=== PATIENT | female | born 1980 | race American Indian/Alaskan Native ===

== ENCOUNTER 2017-05-13 05:53 | Day surgery (SDC) | payer MEDICARE ==
[2017-05-13] MEDS ORDERED: ANCEF/STERILE WATER 2 GM/20 ML 2 GM/20 ML SYRINGE IV NR (06:00)
[2017-05-13] MEDS ORDERED: NACL 0.9% 1000 ML 1,000 ML IV SCH (06:00)
[2017-05-13] MEDS ORDERED: NACL BACTERIOSTATIC INFILTRATI ONE (06:44)
[2017-05-13] MEDS ORDERED: SUBLIMAZE ONE (07:19)
[2017-05-13] MEDS ORDERED: DIPRIVAN 10 MG/ML IV ONE (07:19)
[2017-05-13] MEDS ORDERED: NACL 0.9% 100 ML ONE (07:23)
[2017-05-13] MEDS ORDERED: ROBINUL ONE (07:23)
[2017-05-13] MEDS ORDERED: XYLOCAINE MPF 2% ONE (07:23)
[2017-05-13] MEDS ORDERED: NEO SYNEPHRINE ONE (07:23)
[2017-05-13] MEDS ORDERED: HEPARIN 10,000 UNITS/10 ML ONE (07:36)
[2017-05-13] MEDS ORDERED: PROTAMINE SULFATE ONE (07:36)
[2017-05-13] MEDS ORDERED: MARCAINE 0.25% INFILTRATI ONE ×3 (07:36→09:46)
[2017-05-13] MEDS ORDERED: NACL 0.9% 500 ML 500 ML ONE (07:37)
[2017-05-13] MEDS ORDERED: GELFOAM TP ONE ×2 (07:37→11:05)
[2017-05-13] MEDS ORDERED: THROMBIN (BOVINE) TP ONE (07:37)
[2017-05-13] MEDS ORDERED: PERCOCET 5/325 PO PRN (07:38)
[2017-05-13] MEDS ORDERED: ZOFRAN IV PRN (07:38)
[2017-05-13] MEDS ORDERED: MORPHINE IV PRN (07:38)
--- NOTE | 2017-05-13 07:40 | Anesthesia Consultation ---
Anesthesia Consult and Med Hx Date of service: 05/13/17 - Airway Anesthetic Teeth Evaluation: Good, Partials (upper) ROM Head & Neck: Adequate Mental/Hyoid Distance: Adequate Mallampati Class: Class II Intubation Access Assessment: Probably Good - Pulmonary Exam CTA: Yes - Cardiac Exam Cardiac Exam: RRR - Pre-Operative Health Status ASA Pre-Surgery Classification: ASA3 Proposed Anesthetic Plan: General - Pulmonary Hx Smoking: No Hx Asthma: No - Cardiovascular System Hx Hypertension: Yes (x 1 yr) - Central Nervous System Hx Neuromuscular Disorder: No (has leg and hand spasms) Hx Seizures: No Hx Psychiatric Problems: Yes - Endocrine Hx Renal Disease: Yes (not yet on dialysis) Hx Hyperthyroidism: Yes (? hyperparathyroidism?) - Hematic Hx Anemia: Yes - Other Systems Hx Cancer: No
--- NOTE | 2017-05-13 07:41 | Anesthesia Day of Surgery ---
Anesthesia Day of Surgery - Day of Surgery Patient Examined: Yes Patient is NPO: Yes
[2017-05-13 07:42] LABS: Hematocrit 33.8 % (30.3-42.9); Hemoglobin 11.4 gm/dl (10.1-14.3)
[2017-05-13] MEDS ORDERED: PEPCID IV ONE (07:47)
[2017-05-13] MEDS ORDERED: VERSED IV NR (08:00)
[2017-05-13] MEDS ORDERED: PEPCID IV NR (08:00)
[2017-05-13] MEDS ORDERED: DILAUDID ONE (09:02)
[2017-05-13] MEDS ORDERED: DECADRON ONE (09:17)
[2017-05-13] MEDS ORDERED: ZOFRAN ONE (09:17)
[2017-05-13] MEDS ORDERED: BREVIBLOC IV ONE ×3 (09:24→11:04)
[2017-05-13] MEDS ORDERED: TRIDIL DRIP 50MG/250ML 0 MG/0 ML BOTTLE ONE (09:36)
[2017-05-13] MEDS ORDERED: NITROGLYCERIN SYRINGE 3 ML ONE (09:36)
[2017-05-13] MEDS ORDERED: NACL 0.9% IR ONE (09:46)
[2017-05-13] MEDS ORDERED: NITROGLYCERIN SYRINGE IR ONE (09:46)
[2017-05-13] MEDS ORDERED: NITROGLYCERIN SYRINGE UD ONE (09:46)
[2017-05-13] MEDS ORDERED: HEPARIN 10,000 UNITS/10 ML 2,000 UNIT in NACL 0.9% 500 ML 500 ML IR ONE (09:48)
[2017-05-13 11:05] LABS: Hematocrit 29.9 % (30.3-42.9); Hemoglobin 10.1 gm/dl (10.1-14.3)
[2017-05-13] MEDS ORDERED: THROMBIN SPRAYKIT (BOVINE) TP ONE (11:05)
[2017-05-13] MEDS ORDERED: NACL 0.9% 1000 ML 1,000 ML ONE (11:06)
--- NOTE | 2017-05-13 11:06 | Short Stay Summary ---
Short Stay Documentation Date of service: 05/13/17 - History H&P: obtained from office - Allergies and Medications Current Medications: Allergies No Known Allergies Allergy (Verified 05/13/17 06:47) Home Medications Medication Instructions Recorded Confirmed Last Taken Type HYDROcodone/APAP 10-325 [[place] 1 each PO Q6HR PRN #30 tablet 04/10/14 05/13/17 04/13/17 Rx 10-325 mg TAB] Calcitriol [Rocaltrol] 0.5 mcg PO PRN PRN 05/07/17 05/13/17 05/06/17 History Citalopram [celeXA] 20 mg PO QDAY 05/07/17 05/13/17 05/12/17 History Lisinopril [Zestril] 40 mg PO DAILY 05/07/17 05/07/17 05/12/17 22:00 History NIFEdipine [Procardia] 10 mg PO DAILY 05/07/17 05/07/17 05/12/17 22:00 History Active Medications Cefazolin Sodium (Ancef/Sterile Water 2 Gm/20 Ml) 2 gm in 20 mls @ 80 mls/hr IV PREOP NR PRN Reason: Protocol Stop: 05/13/17 23:59 Sodium Chloride (Nacl 0.9% 1000 Ml) 1,000 mls @ 42 mls/hr IV DIRECT SARAH Last Admin: 05/13/17 07:09 Dose: 42 mls/hr Midazolam HCl (Versed) 2 mg IV PREOP NR Stop: 05/13/17 23:59 Last Admin: 05/13/17 07:47 Dose: 2 mg Morphine Sulfate (Morphine) 2 mg IV Q10MIN PRN PRN Reason: Pain, Moderate (4-6) Stop: 05/13/17 12:00 Ondansetron HCl (Zofran) 4 mg IV ONCE PRN PRN Reason: Nausea And Vomiting Stop: 05/13/17 12:00 - Brief post op/procedure progress note Date of procedure: 05/13/17 Pre-op diagnosis: ESRD Post-op diagnosis: same Procedure: RUE cephalic vein to brachial artery AVF at the elbow Anesthesia: MAC, local Findings: good thrill but some spasm noted at end Surgeon: RACHEL JENKINS Clinical Quality Assurance Specialist: DEVANTE SNYDER Estimated blood loss: minimal Pathology: none Condition: stable - Hospital course Hospital course: benign - Disposition Condition at discharge: Good Disposition: DC-01 TO HOME OR SELFCARE - Discharge Diagnoses (1) Chronic kidney disease Status: Chronic Qualifiers: Chronic kidney disease stage: stage 5, not on chronic dialysis Qualified Code(s): N18.5 - Chronic kidney disease, stage 5 Short Stay Discharge Plan Activity: advance as tolerated Diet: advance as tolerated Wound: per your surgeon's advice Follow up with: RACHEL JENKINS MD [Staff Physician] - 14 Days Prescriptions: HYDROcodone/APAP 5-325 [[place] 5/325] 1 each PO Q6HR PRN #40 tablet PRN Reason: Pain
--- NOTE | 2017-05-13 11:11 | Operative Report ---
Operative Report Operative Report: Date of procedure: 05/13/2017 Pre-operative diagnosis: End-stage renal failure Post-operative diagnosis: Same Procedure name(s): [Cephalic] vein to brachial artery fistula at the level of the elbow in the right upper extremity Surgeon: Natan Cherry MD Drying Can Worker: [JAYLAN Burns] Anesthesia: Local MAC EBL: Less than 50 mL Operative indication: Patient is a 36 year old woman with a history of end- stage renal failure. The patient presents for establishment of long-term hemodialysis access. Findings: Excellent thrill in the arteriovenous fistula at the end of the procedure. Easily palpable radial pulse distal to the anastomosis. Procedure: The patient was placed on the table in the supine position. The right arm was prepped with ChloraPrep solution and draped in the usual sterile fashion. The ultrasound was used to identify the cephalic vein after a tourniquet had been placed in the upper arm using a rubber glove. The vein appeared to be of adequate caliber and no thrombus was noted. I had actually uses the ultrasound on the patient in the holding area. The left upper extremity veins were small and unusable. The right cephalic vein appeared to be of reasonable caliber. The patient was given general anesthesia. Under local anesthesia, an incision was made just below the elbow. Dissection was carried out to identify the common vein. Dissection was also carried out to identify the brachial artery. The brachial artery had into the radial artery and brachial artery just above the elbow. The brachial artery was slightly smaller than expected. The vein was dissected from the surrounding tissue to provide enough length to reach the artery. A branch point of the vein was spatulated for the anastomosis. Nitroglycerin was instilled into the vein to dwell while the anastomosis was created. An arteriotomy was made in the artery. Nitroglycerin was instilled into the proximal portion of the artery as well. An end-to-side anastomosis was created using running 7-0 Prolene. A #2 Nicci catheter was used to make sure all vessels were patent. The anastomosis was completed and flow started into the fistula. There was a strong thrill at the level of the elbow. Over a period of observation, I was concerned that the fistula thrill was not as good as I expected. I passed a Nicci catheter through the side branch of the fistula to dilate the arterial anastomosis. This seemed to have limited effect. I ultimately reoccluded the brachial artery and opened the anterior surface of the anastomosis and redid that to make sure that there was no anterior obstruction. Passage of the Nicci revealed that all 3 vessels were widely patent (proximal brachial artery, distal brachial artery, and proximal vein). Flow was started back into the fistula with development of the thrill in the elbow area again with easily audible low resistance Doppler flow only up through the cephalic vein. It appeared that the patient continue to have intermittent spasm of her vessels which is probably related to her young age and the relatively small vessels that she had. At this point I felt it was productive to continue to try and overcome spasm at multiple locations. I should note that I did give the patient 3000 units of intravenous heparin during the reopening procedure. Hemostasis was obtained. The wound was infiltrated with half percent Marcaine and epinephrine. Closure was done with 3-0 Vicryl and 4-0 subcuticular PDS. Dermabond was placed. The patient tolerated the procedure well. There was an easily palpable right radial pulse at the end of the procedure. There was a good thrill in the fistula at the end of the procedure. Sponge, needle, and instrument counts were reported as correct.
[2017-05-13] MEDS ORDERED: APRESOLINE IV ONE (12:27)
--- NOTE | 2017-05-13 13:28 | Post Anesthesia Evaluation ---
- Post Anesthesia Evaluation Patient Participated: Yes Airway Patent: Yes Stable Respiratory Function: Yes Nausea/Vomiting: No Temp > 96.8F: Yes Pain Manageable: Yes Adequeate Hydration: Yes Anesthesia Complications: No Block Receding Appropriately: Not Applicable Patient on Ventilator: No
[2017-05-13 16:50] VITALS: BP 141/91
== END 2017-05-13 14:24 | disposition home or self-care (01) ==
LOC: OR 05:53
PROVIDERS: ATTEND Surgery Vascular Surgery
DX: I12.0 Hypertensive chronic kidney disease with stage 5 chronic kidney disease or end stage renal disease (principal); N18.6 End stage renal disease; B20 Human immunodeficiency virus [HIV] disease; E05.90 Thyrotoxicosis, unspecified without thyrotoxic crisis or storm; Z98.890 Other specified postprocedural states
CPT/HCPCS: 36415; 36821; 81025; 82310; 82803; 84132; 85014; 85018; A4649; C1757; J0360; J0690; J1100; J1170; J1644; J2250; J2370; J2405; J2704; J3010; J7030; J7040; J2720

== ENCOUNTER 2019-01-18 10:43 | Inpatient (IN) | payer MEDICARE ==
[2019-01-18] MEDS ORDERED: CATAPRES PO ONE (11:46)
--- NOTE | 2019-01-18 11:54 | Emergency Department Report ---
HPI - General Chief Complaint: High BP Time Seen by Provider: 01/18/19 11:29 - HPI HPI: Room 6 The patient is a 38-year-old female presenting with the chief complaint of needing dialysis. The patient has history of end-stage renal disease and normally receives dialysis every Thursday. The patient states received dialysis 3 days ago (Thursday) as scheduled. The patient states this morning she was unable to obtain a ride to dialysis so she called EMS to come to the emergency department. Patient states she developed shortness of breath this morning ED Past Medical Hx - Past Medical History Previous Medical History?: Yes Hx Hypertension: Yes Hx Renal Disease: Yes (not yet on dialysis) Hx Arthritis: Yes (hands) Hx Psychiatric Treatment: Yes (Depression) Hx HIV: Yes (last CD4 count 117 Summer 2018) Additional medical history: Sciatica. Shingles - Surgical History Past Surgical History?: Yes Additional Surgical History: AVG placement. permacath placement - Family History Family history: no significant - Social History Smoking Status: Never Smoker Substance Use Type: None - Medications Home Medications: Home Medications Medication Instructions Recorded Confirmed Last Taken Type HYDROcodone/APAP 10-325 [[place] 1 each PO Q6HR PRN #30 tablet 04/10/14 05/13/17 04/13/17 Rx 10-325 mg TAB] Calcitriol [Rocaltrol] 0.5 mcg PO PRN PRN 05/07/17 05/13/17 05/06/17 History Citalopram [Celexa] 20 mg PO QDAY 05/07/17 05/13/17 05/12/17 History Lisinopril [Zestril] 40 mg PO DAILY 05/07/17 05/07/17 05/12/17 22:00 History NIFEdipine [Procardia] 10 mg PO DAILY 05/07/17 05/07/17 05/12/17 22:00 History HYDROcodone/APAP 5-325 [[place] 1 each PO Q6HR PRN #40 tablet 05/13/17 Unknown Rx 5/325] ED Review of Systems ROS: Stated complaint: DIALYSIS Other details as noted in HPI Constitutional: no symptoms reported Eyes: denies: eye pain ENT: denies: throat pain Respiratory: shortness of breath Cardiovascular: denies: chest pain Endocrine: no symptoms reported Gastrointestinal: denies: abdominal pain Genitourinary: denies: abnormal menses Musculoskeletal: denies: back pain Neurological: denies: headache Physical Exam - Physical Exam Vital Signs: Vital Signs 01/18/19 10:55 Temperature 97.8 F Pulse Rate 95 H Respiratory 18 Rate Blood Pressure 177/116 O2 Sat by Pulse 100 Oximetry Physical Exam: GENERAL: The patient is well-developed well-nourished female lying on stretcher not appearing to be in acute distress. [] HEENT: Normocephalic. Atraumatic. Extraocular motions are intact. Patient has moist mucous membranes. NECK: Supple. Trachea midline CHEST/LUNGS: Clear to auscultation. There is no respiratory distress noted. HEART/CARDIOVASCULAR: Regular. There is no tachycardia. There is no gallop rub or murmur. ABDOMEN: Abdomen is soft, nontender. Patient has normal bowel sounds. There is no abdominal distention. SKIN: There is no rash. There is trace to 1+ bilateral lower external ear. Edema. There is no diaphoresis. NEURO: The patient is awake, alert, and oriented. The patient is cooperative. The patient has normal speech MUSCULOSKELETAL: There is no evidence of acute injury. ED Course Vital Signs 01/18/19 10:55 Temperature 97.8 F Pulse Rate 95 H Respiratory 18 Rate Blood Pressure 177/116 O2 Sat by Pulse 100 Oximetry - Consultations Consultation #1: 01/18/19 13:44 Nephrology paged 01/18/19 14:[address] Dominguez- will arrange for hemodialysis ED Medical Decision Making - Lab Data Result diagrams: 01/18/19 12:48 01/18/19 12:48 Laboratory Tests 01/18/19 01/18/19 01/18/19 12:48 12:48 12:48 WBC 2.7 L RBC 3.51 L Hgb 9.8 L Hct 30.8 MCV 88 MCH 28 MCHC 32 RDW 20.6 H Plt Count 188 Lymph % (Auto) 39.5 H [place] % (Auto) 8.2 H Eos % (Auto) 5.2 H Baso % (Auto) 1.6 Lymph # 1.1 L [place] # 0.2 Eos # 0.1 Baso # 0.0 Seg Neutrophils % 45.5 Seg Neutrophils # 1.2 L PT 13.7 INR 1.08 APTT 29.7 Sodium 135 L Potassium 4.5 Chloride 96.4 L Carbon Dioxide 26 Anion Gap 17 BUN 39 H Creatinine 9.8 H Estimated GFR 5 BUN/Creatinine Ratio 4 Glucose 131 H Calcium 8.3 L - Radiology Data Radiology results: report reviewed (chest x-ray), image reviewed (chest x-ray) interpreted by me: Chest [id number] [facility] [address] [place] [address] XRay Report Signed Patient: ESAU HUFF MR#: [id number] : 1980 Acct:[id number] Age/Sex: 38 / F ADM Date: 01/18/19 Loc: ED Attending Dr: Ordering Physician: GROVER MUNGUIA MD Date of Service: 01/18/19 Procedure(s): XR chest 1V ap Accession Number(s): [id number] cc: GROVER MUNGUIA MD Fluoro Time In Minutes: CHEST 1 VIEW 11:53 AM INDICATION / CLINICAL INFORMATION: Shortness of breath. Scheduled for dialysis. COMPARISON: None available. FINDINGS: SUPPORT DEVICES: There is a right jugular CVL with the tip overlying the inferior right atrium. HEART / MEDIASTINUM: There is mild generalized enlargement of the cardiopericardial silhouette. There is mild prominence of the central pulmonary vessels. LUNGS / PLEURA: Interstitial lung markings are mildly increased in the lower lung zones, right greater than left. No pneumothorax. ADDITIONAL FINDINGS: There is mild gaseous distention of the stomach. IMPRESSION: 1. Mild congestive heart failure/fluid overload. 2. Mild gaseous distention of the stomach. Signer Name: Rubén Reyes MD Signed: 01/18/2019 12:32 PM Workstation Name: [id number] Transcribed By: RT Dictated By: Rubén Reyes MD Electronically Authenticated By: Rubén Reyes MD Signed Date/Time: 01/18/19 1232 DD/ 1231 TD/TT: - Differential Diagnosis end-stage renal disease, pulmonary edema, hypertensive urgency Critical care attestation.: If time is entered above; I have spent that time in minutes in the direct care of this critically ill patient, excluding procedure time. ED Disposition Clinical Impression: End stage renal disease, Shortness of breath Disposition: OP ADMIT IP TO THIS HOSP Is pt being admited?: Yes Does the pt Need Aspirin: No Condition: Fair Referrals: PRIMARY CARE,MD [Primary Care Provider] - 3-5 Days Time of Disposition: 14:19 (hospitalist paged (Dr Fontanez))
--- NOTE | 2019-01-18 12:37 | XRay Report ---
CHEST 1 VIEW 11:53 AM INDICATION / CLINICAL INFORMATION: Shortness of breath. Scheduled for dialysis. COMPARISON: None available. FINDINGS: SUPPORT DEVICES: There is a right jugular CVL with the tip overlying the inferior right atrium. HEART / MEDIASTINUM: There is mild generalized enlargement of the cardiopericardial silhouette. There is mild prominence of the central pulmonary vessels. LUNGS / PLEURA: Interstitial lung markings are mildly increased in the lower lung zones, right greate r than left. No pneumothorax. ADDITIONAL FINDINGS: There is mild gaseous distention of the stomach. IMPRESSION: 1. Mild congestive heart failure/fluid overload. 2. Mild gaseous distention of the stomach. Signer Name: Rubén Reyes MD Signed: 01/18/2019 12:32 PM Workstation Name: [id number]
[2019-01-18 13:23] LABS: Basophils % (Auto) 1.6 % (0.0-1.8); Eosinophils # (Auto) 0.1 K/mm3 (0.0-0.4); Eosinophils % (Auto) 5.2 % (0.0-4.3); Hematocrit 30.8 % (30.3-42.9); Hemoglobin 9.8 gm/dl (10.1-14.3); Lymphocytes # (Auto) 1.1 K/mm3 (1.2-5.4); Lymphocytes % (Auto) 39.5 % (13.4-35.0); Mean Corpuscular HGB Conc 32 % (30-34); Mean Corpuscular Volume 88 fl (79-97); Monocytes # (Auto) 0.2 K/mm3 (0.0-0.8); Monocytes % (Auto) 8.2 % (0.0-7.3); Platelet Count 188 K/mm3 (140-440); Red Blood Count 3.51 M/mm3 (3.65-5.03)
[2019-01-18 13:33] LABS: INR 1.08 (0.87-1.13)
[2019-01-18 13:34] LABS: Partial Thromboplastin Time 29.7 Sec. (24.2-36.6)
[2019-01-18 13:35] LABS: Red Cell Distribution Width 20.6 % (13.2-15.2)
[2019-01-18 13:43] LABS: Calcium 8.3 mg/dL (8.4-10.2)
[2019-01-18] MEDS ORDERED: NACL 0.9% 100 ML IV PRN (14:30)
[2019-01-18] MEDS ORDERED: ZOFRAN IV PRN (15:41)
[2019-01-18] MEDS ORDERED: PROVENTIL IH PRN (15:41)
[2019-01-18] MEDS ORDERED: SODIUM CHLORIDE FLUSH SYRINGE 10 ML IV PRN (15:41)
[2019-01-18] MEDS ORDERED: TYLENOL PO PRN (15:41)
--- NOTE | 2019-01-18 15:41 | History and Physical Report ---
History of Present Illness History of present illness: om 6 The patient is a 38-year-old female presenting with the chief complaint of needing dialysis. The patient has history of end-stage renal disease and normally receives dialysis every Thursday. The patient states received dialysis 3 days ago (Thursday) as scheduled. The patient states this morning she was unable to obtain a ride to dialysis so she called EMS to come to the emergency department. Patient states she developed shortness of breath this morning ED Past Medical Hx - Past Medical History Previous Medical History?: Yes Hx Hypertension: Yes Hx Renal Disease: Yes (not yet on dialysis) Hx Arthritis: Yes (hands) Hx Psychiatric Treatment: Yes (Depression) Hx HIV: Yes (last CD4 count 117 Summer 2018) Additional medical history: Sciatica. Shingles - Surgical History Past Surgical History?: Yes Additional Surgical History: AVG placement. permacath placement - Family History Family history: no significant - Social History Smoking Status: Never Smoker Substance Use Type: None - Medications Medications and Allergies Allergies Allergy/AdvReac Type Severity Reaction Status Date / Time No Known Allergies Allergy Verified 05/13/17 06:47 Home Medications Medication Instructions Recorded Confirmed Last Taken Type HYDROcodone/APAP 10-325 [[place] 1 each PO Q6HR PRN #30 tablet 04/10/14 05/13/17 04/13/17 Rx 10-325 mg TAB] Calcitriol [Rocaltrol] 0.5 mcg PO PRN PRN 05/07/17 05/13/17 05/06/17 History Citalopram [Celexa] 20 mg PO QDAY 05/07/17 05/13/17 05/12/17 History Lisinopril [Zestril] 40 mg PO DAILY 05/07/17 05/07/17 05/12/17 22:00 History NIFEdipine [Procardia] 10 mg PO DAILY 05/07/17 05/07/17 05/12/17 22:00 History HYDROcodone/APAP 5-325 [[place] 1 each PO Q6HR PRN #40 tablet 05/13/17 Unknown Rx 5/325] Active Meds: Active Medications Sodium Chloride (Nacl 0.9%) 100 mls @ 999 mls/hr IV BILL PRN PRN Reason: Hypotension Exam - Constitutional Vitals: Temp Pulse Resp BP Pulse Ox 98.3 F 83 20 159/109 99 09/03/19 12:05 01/18/19 12:05 01/18/19 12:28 01/18/19 12:05 01/18/19 12:28 Results - Labs CBC & Chem 7: 01/18/19 12:48 01/18/19 12:48 Labs: Abnormal lab results 01/18/19 01/18/19 Range/Units 12:48 12:48 WBC 2.7 L (4.5-11.0) K/mm3 RBC 3.51 L (3.65-5.03) M/mm3 Hgb 9.8 L (10.1-14.3) gm/dl RDW 20.6 H (13.2-15.2) % Lymph % (Auto) 39.5 H (13.4-35.0) % [place] % (Auto) 8.2 H (0.0-7.3) % Eos % (Auto) 5.2 H (0.0-4.3) % Lymph # 1.1 L (1.2-5.4) K/mm3 Seg Neutrophils # 1.2 L (1.8-7.7) K/mm3 Sodium 135 L (137-145) mmol/L Chloride 96.4 L (98-107) mmol/L BUN 39 H (7-17) mg/dL Creatinine 9.8 H (0.7-1.2) mg/dL Glucose 131 H (65-100) mg/dL Calcium 8.3 L (8.4-10.2) mg/dL
[2019-01-18] MEDS ORDERED: NORCO 10/325 PO PRN (15:43)
[2019-01-18] MEDS ORDERED: ROCALTROL PO PRN (15:43)
[2019-01-18 16:20] VITALS: BP 169/115
[2019-01-18] MEDS ORDERED: SODIUM CHLORIDE FLUSH SYRINGE 10 ML IV SCH (22:00)
[2019-01-19] MEDS ORDERED: celeXA PO SCH (10:00)
[2019-01-19] MEDS ORDERED: PROCARDIA*For Tocolysis only PO SCH (10:00)
[2019-01-19] MEDS ORDERED: ZESTRIL PO SCH (10:00)
== END 2019-01-18 16:00 | disposition left against medical advice (07) | DRG 682 ==
LOC: ED 10:43 → 3A 15:42
PROVIDERS: ADMIT Internal Medicine; ATTEND Internal Medicine
DX: I12.0 Hypertensive chronic kidney disease with stage 5 chronic kidney disease or end stage renal disease (principal); N18.6 End stage renal disease; R06.02 Shortness of breath; Z99.2 Dependence on renal dialysis; M19.042 Primary osteoarthritis, left hand; M19.041 Primary osteoarthritis, right hand; F32.9 Major depressive disorder, single episode, unspecified; Z53.21 Procedure and treatment not carried out due to patient leaving prior to being seen by health care provider; Z21 Asymptomatic human immunodeficiency virus [HIV] infection status
CPT/HCPCS: 36415; 71045; 80048; 85025; 85610; 85730; G0378

== ENCOUNTER 2019-12-15 09:46 | Observation (INO) | payer MEDICARE ==
--- NOTE | 2019-12-15 11:40 | Emergency Department Report ---
HPI - General Chief Complaint: Recheck/Abnormal Lab/Rx Time Seen by Provider: 12/15/19 11:15 - HPI HPI: This is a 39-year-old old -[place] female who presents to the emergency department with complaint of some shortness of breath after missing her dialysis session yesterday. She went to [facility] and says that she had some blood work done and the cafe manager was called and they ended up discharging her to follow-up with the dialysis clinic. However the patient says that she attempted to go to the dialysis clinic but they would not dialyze her secondary to her elevated blood pressure. She spoke to her cafe manager, Dr. Dominguez, who told her to come to [facility] for dialysis. She also has a past medical history of hypertension, HIV, sciatica. ED Past Medical Hx - Past Medical History Hx Hypertension: Yes Hx Renal Disease: Yes Hx Arthritis: Yes (hands) Hx Seizures: No Hx Psychiatric Treatment: Yes (Depression) Hx Asthma: No Hx HIV: Yes (last CD4 count 117 Summer 2018) Additional medical history: Sciatica. Shingles - Surgical History Additional Surgical History: AVG placement. permacath placement - Social History Smoking Status: Never Smoker Substance Use Type: None - Medications Home Medications: Home Medications Medication Instructions Recorded Confirmed Last Taken Type HYDROcodone/APAP 10-325 [[place] 1 each PO Q6HR PRN #30 tablet 04/10/14 05/13/17 04/13/17 Rx 10-325 mg TAB] Citalopram [Celexa] 20 mg PO QDAY 05/07/17 05/13/17 05/12/17 History Lisinopril [Zestril] 40 mg PO DAILY 05/07/17 05/07/17 05/12/17 22:00 History NIFEdipine [Procardia] 10 mg PO DAILY 05/07/17 05/07/17 05/12/17 22:00 History calcitrioL [Rocaltrol] 0.5 mcg PO PRN PRN 05/07/17 05/13/17 05/06/17 History HYDROcodone/APAP 5-325 [[place] 1 each PO Q6HR PRN #40 tablet 05/13/17 Unknown Rx 5/325] ED Review of Systems ROS: Stated complaint: DIALYSIS Other details as noted in HPI Comment: All other systems reviewed and negative Constitutional: denies: chills, fever Eyes: denies: eye pain, vision change ENT: denies: ear pain, throat pain Respiratory: shortness of breath. denies: cough Cardiovascular: edema. denies: chest pain Gastrointestinal: denies: abdominal pain, vomiting Genitourinary: denies: dysuria, discharge Musculoskeletal: denies: back pain, arthralgia Skin: denies: rash, lesions Neurological: denies: headache, weakness Physical Exam - Physical Exam Physical Exam: GENERAL: The patient is well-developed well-nourished. HENT: Normocephalic. Atraumatic. Patient has moist mucous membranes. EYES: Extraocular motions are intact. NECK: Supple. Trachea is midline. CHEST/LUNGS: Slightly coarse breath sounds. No tachypnea or accessory muscle use. There is no respiratory distress noted. HEART/CARDIOVASCULAR: Regular. There is no tachycardia. ABDOMEN: Abdomen is soft, nontender. Patient has normal bowel sounds. SKIN: Skin is warm and dry. NEURO: The patient is awake, alert, and oriented. The patient is cooperative. Normal speech. MUSCULOSKELETAL: There is no tenderness or deformity. There is no evidence of acute injury. ED Course - Consultations Consultation #1: 12/15/19 18:00 I spoke with the patient's nephrology service, Dr. Rooney, and the patient will receive dialysis today. ED Medical Decision Making - Lab Data Result diagrams: 12/15/19 11:27 12/15/19 11:27 - Radiology Data Radiology results: image reviewed interpreted by me: Chest x-ray does not show any acute process. There are no pleural effusions, obvious pneumonia and there is no pneumothorax. - Medical Decision Making This patient presents needing dialysis with some shortness of breath. Chest x- ray did not show any acute process. She had a potassium of 5.9 and renal insufficiency consistent with her end-stage renal disease needing dialysis. Nephrology was contacted and consulted. Patient accepted for admission by the hospitalist, Dr. Iqbal. Critical Care Time: No Critical care attestation.: If time is entered above; I have spent that time in minutes in the direct care of this critically ill patient, excluding procedure time. ED Disposition Clinical Impression: ESRD needing dialysis, Missed dialysis, Hyperkalemia HTN (hypertension) Qualifiers: Hypertension type: essential hypertension Qualified Code(s): I10 - Essential (primary) hypertension Disposition: -09 OP ADMIT IP TO THIS HOSP Is pt being admited?: Yes Condition: Fair Time of Disposition: 14:00
[2019-12-15 11:54] LABS: Hematocrit 33.6 % (30.3-42.9); Hemoglobin 10.8 gm/dl (10.1-14.3); Mean Corpuscular HGB Conc 32 % (30-34); Mean Corpuscular Volume 90 fl (79-97); Platelet Count 203 K/mm3 (140-440); Red Blood Count 3.75 M/mm3 (3.65-5.03); Red Cell Distribution Width 18.6 % (13.2-15.2)
--- NOTE | 2019-12-15 12:00 | XRay Report ---
CHEST 1 VIEW 12/15/2019 10:49 AM INDICATION / CLINICAL INFORMATION: SOB. COMPARISON: 01/18/2019 FINDINGS: SUPPORT DEVICES: None. HEART / MEDIASTINUM: Cardiac silhouette is mildly enlarged, unchanged. LUNGS / PLEURA: No significant pulmonary or pleural abnormality. No pneumothorax. ADDITIONAL FINDINGS: No significant additional findings. IMPRESSION: 1. No acute findings. Signer Name: Deo Araya MD Signed: 12/15/2019 11:55 AM Workstation Name: [id number]
[2019-12-15 12:09] LABS: Calcium 10.3 mg/dL (8.4-10.2)
[2019-12-15] MEDS ORDERED: EPOETIN ALFA 10,000 UNIT/1 ML INJ IV PRN (14:11)
[2019-12-15] MEDS ORDERED: SODIUM CHLORIDE 0.9% 100 ML IV PRN (14:11)
--- NOTE | 2019-12-15 15:05 | History and Physical Report ---
History of Present Illness Date of examination: 12/15/19 Date of admission: 12/15/19 14:00 Chief complaint: SOB after missed HD session 12/13 History of present illness: This is a 39-year-old old -[place] female with ESRD on HD (MWF) for 1 year, HIV, HTN, depression, anxiety, asthma, sciatica and history of shingles infection who presented to the emergency department on 12/14 with complaint of some SOB after missing her HD session yesterday because the air-conditioner is broken at the facility. She states she went to [facility] where they refused an HD treatment because her varnishing unit tool setter told them not to administer it. Per ED documentation she stated that she attempted to go to the dialysis clinic but they would not dialyze her secondary to her elevated blood pressure and she spoke to her varnishing unit tool setter, Dr. Dominguez, who told her to come to [facility] for dialysis. She denies chest pain, recent weight loss, hemoptysis, fatigue, chronic headaches, recent travel, recent exposure to sick individuals, or recent known COVID-19 exposure. She does have shortness of breath on exertion for 1 day related to a missed dialysis session. She also states she has been coughing up clear phlegm for 3 months and recently visited an ENT a week ago who told her she has a blocked salivary duct and a left ear infection. She also states that she had watery diarrhea 4-6 times this morning after eating spinach with peaches. Work-up in the emergency department included a chest x-ray which showed no acute process and lab work which revealed a potassium of 5.9, uremia with a BUN 85, creatinine of 11.9. Dr. Dominguez was consulted in the emergency department. She is being admitted for observation for fluid overload and receiving hemodialysis and will be started on valacyclovir for shingles. Advance care planning conducted at bedside in dialysis clinic. Past History Past Medical History: ESRD (on HD (MWF) for 1 year), HIV/AIDS, hypertension, other (shingles, depression, arthiritis, sciatica, anxiety, cardiomyopathy) Past Surgical History: Other (AVF) Social history: , lives with family, full code. denies: smoking, alcohol abuse, prescription drug abuse, IV drug use Family history: diabetes (Mother), other (Mother: ESRD on HD) Medications and Allergies Allergies Allergy/AdvReac Type Severity Reaction Status Date / Time No Known Allergies Allergy Verified 12/15/19 09:59 Home Medications Medication Instructions Recorded Confirmed Last Taken Type HYDROcodone/APAP 10-325 [[place] 1 each PO Q6HR PRN #30 tablet 04/10/14 05/13/17 04/13/17 Rx 10-325 mg TAB] Citalopram [Celexa] 20 mg PO QDAY 05/07/17 05/13/17 05/12/17 History Lisinopril [Zestril] 40 mg PO DAILY 05/07/17 05/07/17 05/12/17 22:00 History NIFEdipine [Procardia] 10 mg PO DAILY 05/07/17 05/07/17 05/12/17 22:00 History calcitrioL [Rocaltrol] 0.5 mcg PO PRN PRN 05/07/17 05/13/17 05/06/17 History HYDROcodone/APAP 5-325 [[place] 1 each PO Q6HR PRN #40 tablet 05/13/17 Unknown Rx 5/325] Active Meds: Active Medications Epoetin Lazarus (Procrit) 10,000 unit IV BILL PRN PRN Reason: hemodialysis Sodium Chloride (Nacl 0.9%) 100 mls @ 999 mls/hr IV BILL PRN PRN Reason: Hypotension Review of Systems Constitutional: no fever, no chills, no sweats, no anorexia, no chronic headaches Ears, nose, mouth and throat: ear pain (States that she has an left ear infection per ENT diagnosed 1 week ago), nasal congestion, other (States she has a blocked salivary gland possibly due to infection diagnosed by ENT 1 week ago) Cardiovascular: edema, shortness of breath, high blood pressure, leg edema (Intermittent), no chest pain, no orthopnea, no palpitations, no rapid/irregular heart beat, no lightheadedness Respiratory: cough, excessive sputum (States she has had a cough with excessive clear phlegm for 3 months), no wheezing, no home oxygen Gastrointestinal: abdominal pain (From coughing), diarrhea (States she had 4-6 watery bowel movements on 12/14 after eating spinach with peaches), no nausea, no vomiting, no constipation, no hematemesis, no coffee ground emesis, no melena, no loss of appetite, no indigestion, no excessive gas, no jaundice Genitourinary Female: no flank pain, no dysuria, no urgency Rectal: no pain, no incontinence, no bleeding Musculoskeletal: arm numbness/tingling (States she has neuropathy), muscle weakness (bilateral calves ), no neck stiffness, no neck pain, no shooting arm pain, no low back pain, no shooting leg pain, no leg numbness/tingling Integumentary: rash, pruritis, sores (States that she has shingles with sores present on left trunk with purulent drainage (these are covered with Band-Aids, AVF on left arm, HD in process and unable to move arm for exam)), no jaundice Neurological: tingling, no head injury, no transient paralysis, no paralysis, no weakness, no numbness, no seizures, no syncope, no tremors, no headaches Psychiatric: anxiety, depression, no suicidal ideation Endocrine: no cold intolerance, no heat intolerance, no excessive thirst, no polydipsia, no polyuria, no nocturia Hematologic/Lymphatic: no easy bruising, no easy bleeding Allergic/Immunologic: no allergic rhinitis Exam - Constitutional Vitals: Temp Pulse Resp BP Pulse Ox 98.9 F 87 16 167/108 96 12/15/19 09:59 12/15/19 13:54 12/15/19 13:54 12/15/19 13:54 12/15/19 13:54 General appearance: Present: no acute distress, cachectic - EENT Eyes: Present: PERRL, EOM intact. Absent: scleral icterus ENT: hearing intact, clear oral mucosa - Neck Neck: Present: normal ROM - Respiratory Respiratory effort: normal Respiratory: bilateral: CTA - Cardiovascular Rhythm: regular Heart Sounds: Present: S1 & S2. Absent: systolic murmur, diastolic murmur - Extremities Extremities: no ischemia, pulses intact, pulses symmetrical, No edema, normal temperature, normal color, Full ROM Peripheral Pulses: within normal limits - Abdominal General gastrointestinal: Present: soft, non-tender, non-distended, normal bowel sounds - Integumentary Integumentary: Present: warm, dry. Absent: clear (Rash to left trunk covered with Band-Aids unable to be assessed r/t HTN presents with left HD access) - Musculoskeletal Musculoskeletal: strength equal bilaterally - Psychiatric Psychiatric: cooperative - Neurologic Neurologic: CNII-XII intact, no focal deficits, moves all extremities Results - Labs CBC & Chem 7: 12/15/19 11:27 12/15/19 11:27 Labs: Laboratory Last Values WBC 7.0 K/mm3 (4.5-11.0) 12/15/19 11:27 RBC 3.75 M/mm3 (3.65-5.03) 12/15/19 11:27 Hgb 10.8 gm/dl (10.1-14.3) 12/15/19 11:27 Hct 33.6 % (30.3-42.9) 12/15/19 11:27 MCV 90 fl (79-97) 12/15/19 11:27 MCH 29 pg (28-32) 12/15/19 11:27 MCHC 32 % (30-34) 12/15/19 11:27 RDW 18.6 % (13.2-15.2) H 12/15/19 11:27 Plt Count 203 K/mm3 (140-440) 12/15/19 11:27 Sodium 131 mmol/L (137-145) L 12/15/19 11:27 Potassium 5.9 mmol/L (3.6-5.0) H D 12/15/19 11:27 Chloride 87.7 mmol/L (98-107) L 12/15/19 11:27 Carbon Dioxide 23 mmol/L (22-30) 12/15/19 11:27 Anion Gap 26 mmol/L 12/15/19 11:27 BUN 85 mg/dL (7-17) H 12/15/19 11:27 Creatinine 11.9 mg/dL (0.6-1.2) H 12/15/19 11:27 Estimated GFR 4 ml/min 12/15/19 11:27 BUN/Creatinine Ratio 7 % 12/15/19 11:27 Glucose 128 mg/dL (65-100) H 12/15/19 11:27 Calcium 10.3 mg/dL (8.4-10.2) H 12/15/19 11:27 - Imaging and Cardiology Chest x-ray: report reviewed, image reviewed - Diagnostic Impressions Diagnostic Impressions: 12/14 CXR: Mild cardiomegaly with no acute process noted Duffy/IV: IV Catheter Type [Right Wrist] INT / Saline Lock Assessment and Plan VTE prophylaxis?: Mechanical Plan of care discussed with patient/family: Yes - Patient Problems (1) ESRD needing dialysis Current Visit: Yes Status: Acute Plan to address problem: -Nephrology consulted in the emergency department -Patient getting dialysis at the time of exam -Epogen with HD -Outpatient HD schedule MWF -Renally dose medications -Avoid nephrotoxic agents -Renal diet -Strict intake and output -Daily weights (2) HTN (hypertension) Current Visit: Yes Status: Chronic Qualifiers: Plan to address problem: -Clonidine and hydralazine restarted -Blood pressure monitoring per protocol -PRN IV hydralazine (3) HIV (human immunodeficiency virus infection) Current Visit: No Status: Chronic Qualifiers: Plan to address problem: - Per ED records last CD4 count was 117 in Summer 2018 (4) Hyperkalemia Current Visit: Yes Status: Acute Plan to address problem: - 12/14 K 5.9 - ESRD on HD MWF - Trend BMP (5) Shingles Current Visit: Yes Status: Acute Plan to address problem: - Valacyclovir 1 gram TID x 7 day started (6) Depression Current Visit: Yes Status: Acute Plan to address problem: - Restarted home Celexa - No current SI or HI noted - Requests a local mental health provider referral (7) DVT prophylaxis Current Visit: No Status: Acute Plan to address problem: - SCDs while in bed (8) Full code status Current Visit: Yes Status: Acute
[2019-12-15] MEDS ORDERED: ONDANSETRON 4 MG/2 ML INJ IV PRN (16:00)
[2019-12-15] MEDS ORDERED: ALBUTEROL 2.5 MG/3 ML NEBU IH PRN (16:00)
[2019-12-15 16:07] LABS: Hepatitis B Surface Antigen Non-Reactive (Negative); Hepatitis C Virus Antibody Non-Reactive (NonReactive)
[2019-12-15] MEDS: ACETAMINOPHEN 325 MG TAB PO PRN ×2 (18:42→22:21)
[2019-12-15] MEDS ORDERED: hydrALAZINE 20 MG/1 ML INJ IV ONE (21:16)
[2019-12-15] MEDS: hydrALAZINE 25 MG TAB PO SCH (21:25)
[2019-12-15] MEDS: cloNIDine 0.1 MG TAB PO SCH (21:25)
[2019-12-15] MEDS: valACYclovir 500 MG TAB PO SCH (21:26)
[2019-12-15] MEDS: guaiFENesin 100 MG/5 ML ORAL LIQD PO PRN (21:27)
[2019-12-16] MEDS: ACETAMINOPHEN 325 MG TAB PO PRN (06:00)
[2019-12-16] MEDS: hydrALAZINE 25 MG TAB PO SCH (06:03)
[2019-12-16 06:04] VITALS: BP 154/118
[2019-12-16] MEDS: guaiFENesin 100 MG/5 ML ORAL LIQD PO PRN (06:04)
--- NOTE | 2019-12-16 07:38 | Progress Note ---
Assessment and Plan - Patient Problems (1) Person under investigation for COVID-19 Current Visit: Yes Status: Acute Plan to address problem: - Febrile overnight on 12/15 (tmax 102.3) - BC, UA, COVID PCR, CXR, CRP, Ddimer, Ferritin and herpes simplex culture pending - Contact/ Droplet precautions initiated - ID consult to follow if COVID (+) (2) ESRD needing dialysis Current Visit: Yes Status: Acute Plan to address problem: -Nephrology consulted in the emergency department -Patient getting dialysis at the time of exam -Epogen with HD -Outpatient HD schedule MWF -Renally dose medications -Avoid nephrotoxic agents -Renal diet -Strict intake and output -Daily weights (3) HTN (hypertension) Current Visit: Yes Status: Chronic Qualifiers: Hypertension type: essential hypertension Qualified Code(s): I10 - Essential (primary) hypertension Plan to address problem: -Clonidine and hydralazine restarted -Blood pressure monitoring per protocol -PRN IV hydralazine (4) HIV (human immunodeficiency virus infection) Current Visit: No Status: Chronic Qualifiers: Plan to address problem: - Per ED records last CD4 count was 117 in Summer 2018 (5) Shingles Current Visit: Yes Status: Acute Plan to address problem: - Valacyclovir 1 gram TID x 7 day started - Trend CBC (6) Depression Current Visit: Yes Status: Acute Plan to address problem: - Restarted home Celexa - No current SI or HI noted - Requests a local mental health provider referral (7) DVT prophylaxis Current Visit: No Status: Acute Plan to address problem: - SCDs while in bed History Interval history: This is a 39-year-old old -[place] female with ESRD on HD (MWF) for 1 year, HIV, HTN, depression, anxiety, asthma, sciatica and history of shingles infection who presented to the ED on 12/14 with a complaint of some SOB after missing her HD session 12/13 because the air-conditioner is broken at the facility. She is being admitted for observation for fluid overload and receiving hemodialysis and will be started on valacyclovir for shingles. She was febrile overnight (tmax 102.3) and a BC, UA, COVID PCR, CXR, CRP, Ddimer, Ferritin and herpes simplex culture was ordered. She was also placed on contact and droplet precautions. She refused her AM labs and was threatening to leave AMA. However she later agreed to stay IF an anitbiotic ointment was prescribed for her open sores on her trunk/back. 12/14: HD 12/15: Febrile overnight (tmax 102.3): BC, UA, COVID PCR, CXR, CRP, Ddimer, Fe rritin and herpes simplex culture ordered. Hospitalist Physical - Constitutional Vitals: Temp Pulse Resp BP Pulse Ox 99.9 F H 118 H 20 154/118 98 12/16/19 05:03 12/16/19 06:03 12/16/19 05:03 12/16/19 06:03 12/16/19 05:03 General appearance: Present: no acute distress, cachectic Results - Labs CBC & Chem 7: 12/15/19 11:27 12/15/19 11:27 Labs: Laboratory Last Values WBC 7.0 K/mm3 (4.5-11.0) 12/15/19 11:27 RBC 3.75 M/mm3 (3.65-5.03) 12/15/19 11:27 Hgb 10.8 gm/dl (10.1-14.3) 12/15/19 11:27 Hct 33.6 % (30.3-42.9) 12/15/19 11:27 MCV 90 fl (79-97) 12/15/19 11:27 MCH 29 pg (28-32) 12/15/19 11:27 MCHC 32 % (30-34) 12/15/19 11:27 RDW 18.6 % (13.2-15.2) H 12/15/19 11:27 Plt Count 203 K/mm3 (140-440) 12/15/19 11:27 Sodium 131 mmol/L (137-145) L 12/15/19 11:27 Potassium 5.9 mmol/L (3.6-5.0) H D 12/15/19 11:27 Chloride 87.7 mmol/L (98-107) L 12/15/19 11:27 Carbon Dioxide 23 mmol/L (22-30) 12/15/19 11:27 Anion Gap 26 mmol/L 12/15/19 11:27 BUN 85 mg/dL (7-17) H 12/15/19 11:27 Creatinine 11.9 mg/dL (0.6-1.2) H 12/15/19 11:27 Estimated GFR 4 ml/min 12/15/19 11:27 BUN/Creatinine Ratio 7 % 12/15/19 11:27 Glucose 128 mg/dL (65-100) H 12/15/19 11:27 Calcium 10.3 mg/dL (8.4-10.2) H 12/15/19 11:27 Hepatitis A IgM Ab Non-reactive (NonReactive) 12/15/19 15:15 Hep Bs Antigen Non-reactive (Negative) 12/15/19 15:15 Hep B Core IgM Ab Non-reactive (NonReactive) 12/15/19 15:15 Hepatitis C Antibody Non-reactive (NonReactive) 12/15/19 15:15 Duffy/IV: Voiding Method Toilet IV Catheter Type [Left Upper INT / Saline Lock arm] IV Catheter Type [Right Wrist] INT / Saline Lock Active Medications - Current Medications Current Medications: Generic Name Dose Route Start Last Admin Trade Name Freq PRN Reason Stop Dose Admin Acetaminophen 650 mg 12/15/19 16:00 12/16/19 06:00 Tylenol PO 650 mg Q4H PRN Administration Pain MILD(1-3)/Fever >100.5/JORDAN Albuterol 2.5 mg 12/15/19 16:00 Proventil IH Q4HRT PRN Shortness Of Breath Citalopram Hydrobromide 20 mg 12/16/19 10:00 Celexa PO QDAY SARAH Clonidine HCl 0.1 mg 12/15/19 20:00 12/15/19 21:25 Catapres PO 0.1 mg TID SARAH Administration Epoetin Lazarus 10,000 unit 12/15/19 14:11 Procrit IV BILL PRN hemodialysis Guaifenesin 200 mg 12/15/19 21:18 12/16/19 06:04 Robitussin PO 200 mg Q4H PRN Administration Cough Hydralazine HCl 50 mg 12/15/19 22:00 12/16/19 06:03 Apresoline PO 50 mg Q8HR SARAH Administration Hydralazine HCl 10 mg 12/16/19 07:35 Apresoline IV Q6HR PRN Hypertension Sodium Chloride 100 mls @ 999 mls/hr 12/15/19 14:11 Nacl 0.9% IV BILL PRN Hypotension Ondansetron HCl 4 mg 12/15/19 16:00 Zofran IV Q8H PRN Nausea And Vomiting Sodium Chloride 10 ml 12/15/19 22:00 12/15/19 21:25 Sodium Chloride Flush Syringe 10 Ml IV 10 ml BID SARAH Administration Sodium Chloride 10 ml 12/15/19 16:00 Sodium Chloride Flush Syringe 10 Ml IV PRN PRN LINE FLUSH Valacyclovir HCl 1,000 mg 12/15/19 20:00 12/15/19 21:26 Valtrex PO 12/22/19 19:59 1,000 mg TID SARAH Administration
[2019-12-16] MEDS ORDERED: NEOMY 3.5 MG/BACIT 400 UNITS/POLY B 5000 UNITS OINT 15 GM TP SCH (08:00)
[2019-12-16] MEDS ORDERED: hydrALAZINE 20 MG/1 ML INJ IV PRN (08:00)
[2019-12-16] MEDS: cloNIDine 0.1 MG TAB PO SCH (08:34)
[2019-12-16] MEDS: valACYclovir 500 MG TAB PO SCH (08:35)
--- NOTE | 2019-12-16 09:08 | Event Note ---
Date: 12/16/19 Patient was upset this morning and threatened to leave AMA. Despite abx ointment ordered for open sores per her request, the patient still left AMA.
[2019-12-16] MEDS ORDERED: CITALOPRAM 20 MG TAB PO SCH (10:00)
--- NOTE | 2019-12-19 17:06 | Discharge Summary ---
Providers - Providers Date of Admission: 12/15/19 14:00 Attending physician: BERTHA HAYWARD 12/15/19 12:45 Consult to Physician [CONS] Routine Comment: Consulting Provider: IVETH GALLOWAY Physician Instructions: Reason For Exam: dialysis Primary care physician: [facility] MD ANA Hospitalization Condition: Undetermined Hospital course: 12/14: patient admitted with volume overload and received HD. 12/15: Chasityn left AMA. She was febrile overnight, CXR, herpes test, cultures and COVID was ordered. Patient was given ointment for her sores. However she l eft AMA despite the new orders. Disposition: DC-07 LEFT AGAINST MED ADVICE - Discharge Diagnoses (1) Person under investigation for COVID-19 Status: Acute Comment: Left AMA (2) ESRD needing dialysis Status: Chronic Comment: Left AMA (3) HTN (hypertension) Status: Chronic Qualifiers: Hypertension type: essential hypertension Qualified Code(s): I10 - Essential (primary) hypertension Comment: Left AMA (4) HIV (human immunodeficiency virus infection) Status: Chronic Qualifiers: Comment: Left AMA (5) Shingles Status: Acute Comment: Left AMA (6) Depression Status: Chronic Comment: Left AMA (7) DVT prophylaxis Status: Acute Comment: Left AMA Core Measure Documentation - Palliative Care Palliative Care/ Comfort Measures: Not Applicable - Core Measures Any of the following diagnoses?: none Exam - Physical Exam Narrative exam: NO PE able to be conducted as she left AMA prior to examination - Constitutional Vitals: Temp Pulse Resp BP Pulse Ox 99.9 F H 118 H 20 154/118 98 12/16/19 05:03 12/16/19 06:03 12/16/19 05:03 12/16/19 06:03 12/16/19 05:03 Plan Follow up with: LIBIA HOWE MD [Primary Care Provider] - 3-5 Days
== END 2019-12-16 08:35 | disposition left against medical advice (07) ==
LOC: ED 09:46 → 3A 14:00
PROVIDERS: ADMIT Internal Medicine; ATTEND Internal Medicine
DX: I12.0 Hypertensive chronic kidney disease with stage 5 chronic kidney disease or end stage renal disease (principal); N18.6 End stage renal disease; E87.5 Hyperkalemia; B02.9 Zoster without complications; F32.9 Major depressive disorder, single episode, unspecified; M54.30 Sciatica, unspecified side; M19.90 Unspecified osteoarthritis, unspecified site; F41.9 Anxiety disorder, unspecified; I42.9 Cardiomyopathy, unspecified; Z21 Asymptomatic human immunodeficiency virus [HIV] infection status; Z99.2 Dependence on renal dialysis; Z79.899 Other long term (current) drug therapy
CPT/HCPCS: 36415; 71045; 80048; 80074; 85027; 96374; 99284; G0257; G0378; J0360; A6250

== ENCOUNTER 2020-06-10 09:41 | Inpatient (IN) | payer MEDICARE ==
--- NOTE | 2020-06-10 10:42 | Event Note ---
ED Screening Note Date of service: 06/10/20 Time: 10:37 ED Screening Note: 39-year-old -[place] female presents to the emergency room stating she missed dialysis on Thursday because she had a fever. Patient planes of chest pain shortness of breath. Patient states it started yesterday midsternal. Patient states it is constant. She does admit to some lower leg edema. Has not had any hospitalizations in a year. She denies any Covid contacts not had Covid. She does have a past medical history of HIV and is currently on no medication, depression, end-stage renal disease with dialysis. This initial assessment/diagnostic orders/clinical plan/treatment(s) is/are subject to change based on patients health status, clinical progression and re- assessment by fellow clinical providers in the ED. Further treatment and workup at subsequent clinical providers discretion. Patient/guardian urged not to elope from the ED as their condition may be serious if not clinically assessed and managed. Initial orders include:
[2020-06-10 11:32] LABS: Basophils # (Auto) 0.1 K/mm3 (0.0-0.1); Basophils % (Auto) 1.1 % (0.0-1.8); Eosinophils # (Auto) 0.1 K/mm3 (0.0-0.4); Eosinophils % (Auto) 1.4 % (0.0-4.3); Hematocrit 29.5 % (30.3-42.9); Hemoglobin 9.5 gm/dl (10.1-14.3); Lymphocytes # (Auto) 1.6 K/mm3 (1.2-5.4); Lymphocytes % (Auto) 30.7 % (13.4-35.0); Mean Corpuscular HGB Conc 32 % (30-34); Mean Corpuscular Volume 94 fl (79-97); Monocytes # (Auto) 0.4 K/mm3 (0.0-0.8); Monocytes % (Auto) 8.1 % (0.0-7.3); Platelet Count 150 K/mm3 (140-440); Red Blood Count 3.13 M/mm3 (3.65-5.03); Red Cell Distribution Width 17.8 % (13.2-15.2)
--- NOTE | 2020-06-10 12:00 | XRay Report ---
XR chest routine 2V INDICATION / CLINICAL INFORMATION: chest pain sob. COMPARISON: 12/15/2019 FINDINGS: SUPPORT DEVICES: None. HEART /PULMONARY VASCULATURE: No significant abnormality. LUNGS / PLEURA: No significant pulmonary or pleural abnormality. No pneumothorax. ADDITIONAL FINDINGS: No significant additional findings. IMPRESSION: 1. No acute findings. Signer Name: Rickey Mcdonnell MD Signed: 06/10/2020 11:56 AM Workstation Name: [id number]
[2020-06-10 12:03] LABS: Calcium 8.7 mg/dL (8.4-10.2)
[2020-06-10] MEDS ORDERED: INSULIN REGULAR, HUMAN 100 UNITS/1 ML IV ONE (12:26)
[2020-06-10] MEDS ORDERED: ALBUTEROL 2.5 MG/3 ML NEBU IH ONE (12:26)
--- NOTE | 2020-06-10 12:49 | Emergency Department Report ---
ED General Adult HPI - General Chief complaint: Medical Clearance Stated complaint: DIALYSIS Time Seen by Provider: 06/10/20 12:19 Source: patient Mode of arrival: Ambulatory Limitations: No Limitations - History of Present Illness Initial comments: 39-year-old female with a past medical history of end-stage renal disease on dialysis Thursday, Thursday, and Thursday, HIV with last CD4 count of 300, and hypertension presents to the hospital with complaints of needing dialysis. Patient missed her last dialysis 2 days ago on Thursday because she was turned away due to temperature of 100.4 at the dialysis center. Patient went to [facility] and waited for an extended period of time but was not evaluated prior to leaving. Patient states that she has not had a recurrent fever. She complains of cough productive of clear sputum and shortness of breath. She complains of chronic chest pain secondary to "HIV" that is unchanged and is worse with cough. No GI symptoms reported - Related Data Home Medications Medication Instructions Recorded Confirmed Last Taken Citalopram [Celexa] 20 mg PO QDAY 05/07/17 05/13/17 05/12/17 Lisinopril [Zestril] 40 mg PO DAILY 05/07/17 05/07/17 05/12/17 22:00 NIFEdipine [Procardia] 10 mg PO DAILY 05/07/17 05/07/17 05/12/17 22:00 calcitrioL [Rocaltrol] 0.5 mcg PO PRN PRN 05/07/17 05/13/17 05/06/17 Previous Rx's Medication Instructions Recorded Last Taken Type HYDROcodone/APAP 10-325 [Dewart 1 each PO Q6HR PRN #30 tablet 04/10/14 04/13/17 Rx 10-325 mg TAB] HYDROcodone/APAP 5-325 [Dewart 1 each PO Q6HR PRN #40 tablet 05/13/17 Unknown Rx 5/325] Allergies Allergy/AdvReac Type Severity Reaction Status Date / Time No Known Allergies Allergy Verified 06/10/20 09:42 ED Review of Systems ROS: Stated complaint: DIALYSIS Other details as noted in HPI Comment: All other systems reviewed and negative ED Past Medical Hx - Past Medical History Hx Hypertension: Yes Hx Congestive Heart Failure: No Hx Diabetes: No Hx Renal Disease: Yes Hx Arthritis: Yes (hands) Hx Seizures: No Hx Psychiatric Treatment: Yes (Depression) Hx Asthma: No Hx COPD: No Hx HIV: Yes (last CD4 count 117 Summer 2018) Additional medical history: Sciatica. Shingles - Surgical History Additional Surgical History: AVG placement. permacath placement - Social History Smoking Status: Never Smoker Substance Use Type: None - Medications Home Medications: Home Medications Medication Instructions Recorded Confirmed Last Taken Type HYDROcodone/APAP 10-325 [Dewart 1 each PO Q6HR PRN #30 tablet 04/10/14 05/13/17 04/13/17 Rx 10-325 mg TAB] Citalopram [Celexa] 20 mg PO QDAY 05/07/17 05/13/17 05/12/17 History Lisinopril [Zestril] 40 mg PO DAILY 05/07/17 05/07/17 05/12/17 22:00 History NIFEdipine [Procardia] 10 mg PO DAILY 05/07/17 05/07/17 05/12/17 22:00 History calcitrioL [Rocaltrol] 0.5 mcg PO PRN PRN 05/07/17 05/13/17 05/06/17 History HYDROcodone/APAP 5-325 [Dewart 1 each PO Q6HR PRN #40 tablet 05/13/17 Unknown Rx 5/325] ED Physical Exam - General Limitations: No Limitations - Other Other exam information: General: No acute distress Head: Atraumatic Eyes: normal appearance ENT: Moist mucous membranes Neck: Normal appearance, no midline tenderness Chest: Clear to auscultation bilaterally CV: Regular rate and rhythm Abdomen: Soft, normal bowel sounds, nontender, nondistended, no rebound or guarding Back: Normal inspection Extremity: Normal inspection, full range of motion, bilateral leg edema without asymmetry Neuro: Alert O x 3, no facial asymmetry, speech clear, no gross motor sensory deficit Psych: Appropriate behavior Skin: No rash ED Course Vital Signs 06/10/20 06/10/20 09:48 09:49 Temperature 98.6 F Pulse Rate 99 H Respiratory 18 Rate Blood Pressure 173/118 O2 Sat by Pulse 96 Oximetry - Consultations Consultation #1: 06/10/20 12:[address] Rooney, will arrange for dialysis today. ED Medical Decision Making - Lab Data Result diagrams: 06/10/20 10:48 06/10/20 Unknown Lab Results 01/06/10/20 06/10/20 Range/Units 10:48 10:48 10:48 WBC 5.4 (4.5-11.0) K/mm3 RBC 3.13 L (3.65-5.03) M/mm3 Hgb 9.5 L (10.1-14.3) gm/dl Hct 29.5 L (30.3-42.9) % MCV 94 (79-97) fl MCH 30 (28-32) pg MCHC 32 (30-34) % RDW 17.8 H (13.2-15.2) % Plt Count 150 (140-440) K/mm3 Lymph % (Auto) 30.7 (13.4-35.0) % [place] % (Auto) 8.1 H (0.0-7.3) % Eos % (Auto) 1.4 (0.0-4.3) % Baso % (Auto) 1.1 (0.0-1.8) % Lymph # (Auto) 1.6 (1.2-5.4) K/mm3 [place] # (Auto) 0.4 (0.0-0.8) K/mm3 Eos # (Auto) 0.1 (0.0-0.4) K/mm3 Baso # (Auto) 0.1 (0.0-0.1) K/mm3 Seg Neutrophils % 58.7 (40.0-70.0) % Seg Neutrophils # 3.2 (1.8-7.7) K/mm3 Sodium (137-145) mmol/L Potassium (3.6-5.0) mmol/L Chloride (98-107) mmol/L Carbon Dioxide (22-30) mmol/L Anion Gap mmol/L BUN (7-17) mg/dL Creatinine (0.6-1.2) mg/dL Estimated GFR ml/min BUN/Creatinine Ratio % Glucose (65-100) mg/dL Calcium (8.4-10.2) mg/dL NT-Pro-B Natriuret Pep 68578 H (0-450) pg/mL HCG, Quant < 2 (0-4) mIU/mL 06/10/20 Range/Units Unknown WBC (4.5-11.0) K/mm3 RBC (3.65-5.03) M/mm3 Hgb (10.1-14.3) gm/dl Hct (30.3-42.9) % MCV (79-97) fl MCH (28-32) pg MCHC (30-34) % RDW (13.2-15.2) % Plt Count (140-440) K/mm3 Lymph % (Auto) (13.4-35.0) % [place] % (Auto) (0.0-7.3) % Eos % (Auto) (0.0-4.3) % Baso % (Auto) (0.0-1.8) % Lymph # (Auto) (1.2-5.4) K/mm3 [place] # (Auto) (0.0-0.8) K/mm3 Eos # (Auto) (0.0-0.4) K/mm3 Baso # (Auto) (0.0-0.1) K/mm3 Seg Neutrophils % (40.0-70.0) % Seg Neutrophils # (1.8-7.7) K/mm3 Sodium 139 (137-145) mmol/L Potassium 6.2 H* (3.6-5.0) mmol/L Chloride 96.5 L (98-107) mmol/L Carbon Dioxide 25 (22-30) mmol/L Anion Gap 24 mmol/L BUN 65 H (7-17) mg/dL Creatinine 12.8 H (0.6-1.2) mg/dL Estimated GFR 4 ml/min BUN/Creatinine Ratio 5 % Glucose 101 H (65-100) mg/dL Calcium 8.7 (8.4-10.2) mg/dL NT-Pro-B Natriuret Pep (0-450) pg/mL HCG, Quant (0-4) mIU/mL - EKG Data -: EKG Interpreted by [facility] EKG shows normal: sinus rhythm, intervals (QTC 513), ST-T waves (No STEMI) Rate: normal - Radiology Data Radiology results: report reviewed Chest x-ray portable: No acute findings - Medical Decision Making 39-year-old female with end-stage renal disease presents to the hospital with shortness of breath and requested dialysis. Patient missed her last dialysis session. Labs revealed hyperkalemia. Insulin, glucose, calcium, sodium bicarb and albuterol initiated. Case discussed with washer cutter Dr. Rooney who is very familiar with the patient. Patient will receive dialysis today. Charge nurse instructed to call in dialysis nurse. Critical Care Time: No Critical care attestation.: If time is entered above; I have spent that time in minutes in the direct care of this critically ill patient, excluding procedure time. ED Disposition Clinical Impression: ESRD needing dialysis, Missed dialysis, Hyperkalemia, HIV (human immunodef iciency virus infection) HTN (hypertension) Qualifiers: Hypertension type: essential hypertension Qualified Code(s): I10 - Essential (primary) hypertension Disposition: 09 OP ADMIT IP TO THIS HOSP Is pt being admited?: Yes Condition: Stable Instructions: Hypertension (ED) Time of Disposition: 12:58 (Dr Fontanez/hospitalist)
[2020-06-10] MEDS ORDERED: CALCIUM GLUCONATE 1,000 MG in SODIUM CHLORIDE 0.9% 100 ML IV ONE (13:00)
[2020-06-10] MEDS ORDERED: DEXTROSE 50% IN WATER (25GM) 50 ML SYRINGE IV ONE (13:00)
[2020-06-10] MEDS ORDERED: SODIUM BICARB 8.4% 50 MEQ/50 ML SYRINGE IV ONE (13:00)
--- NOTE | 2020-06-10 13:00 | History and Physical Report ---
History of Present Illness Chief complaint: I need dialysis History of present illness: 39 YO Female with HTN, OA, HIV, Depression, ESRD on HD (M,W,F) who last underwent dialysis 4 days ago presents to ED for evaluation. Pt acknowledges shortness of breath over the past 2 days with progressively worsening symptoms over the same time frame. Pt Acknowledges noncompliance with dialysis. EMS notified, and upon arrival the patient was found to be in distress. Pt transported to [facility] for further care and evaluation. Pt seen and evaluated in ED and found to have ESRD. Nephrology consulted in ED for dialysis. Prior admission on 12/15/2019 reviewed. All listed medication reconciled at time of admission. Patient denies fever, chills, chest pain, palpitation, productive cough, skin rash, recent ill contact, or known exposure to COVID-19. Past History Past Medical History: ESRD, HIV/AIDS, hypertension Past Surgical History: Other (Dialysis access) Social history: . denies: smoking, alcohol abuse Family history: hypertension Medications and Allergies Allergies Allergy/AdvReac Type Severity Reaction Status Date / Time lisinopril Allergy Unknown Verified 06/10/20 17:14 metoprolol Allergy Unknown Verified 06/10/20 17:15 Home Medications Medication Instructions Recorded Confirmed Last Taken Type NIFEdipine [Procardia] 10 mg PO DAILY 05/07/17 05/07/17 05/12/17 22:00 History calcitrioL [Rocaltrol] 0.5 mcg PO PRN PRN 05/07/17 05/13/17 05/06/17 History cloNIDine 0.1 mg PO TID 06/10/20 06/10/20 Unknown History Active Meds: Active Medications Dextrose (Dextrose 50% In Water (25gm) 50 Ml Syringe) 50 ml IV ONCE ONE; Protocol Stop: 06/10/20 13:01 Calcium Gluconate 1,000 mg/ (Sodium Chloride) 110 mls @ 660 mls/hr IV ONCE ONE Stop: 06/10/20 13:09 Sodium Bicarbonate (Sodium Bicarb 8.4% 50 Meq/50 Ml Syringe) 50 meq IV ONCE ONE Stop: 06/10/20 13:01 Review of Systems Constitutional: no fever, no chills, no anorexia, no fatigue Ears, nose, mouth and throat: no ear pain, no tinnitis, no nose pain, no nasal discharge Breasts: no change in shape, no mass Cardiovascular: no chest pain, no orthopnea, no palpitations, no rapid/irregular heart beat, no edema Respiratory: no cough, no excessive sputum, no shortness of breath, no dyspnea on exertion Gastrointestinal: no abdominal pain, no diarrhea, no change in bowel habits, no hematemesis Genitourinary Female: no pelvic pain, no flank pain, no dysuria Rectal: no pain, no bleeding Musculoskeletal: no neck pain, no low back pain, no leg numbness/tingling Integumentary: no rash, no redness, no sores Neurological: no transient paralysis, no parathesias, no tingling, no seizures, no tremors Psychiatric: no anxiety, no memory loss, no change in sleep habits, no sleep disturbances, no insomnia Endocrine: no polyphagia, no polydipsia, no nocturia, no excessive sweating Hematologic/Lymphatic: no easy bruising, no easy bleeding Exam - Constitutional Vitals: Temp Pulse Resp BP Pulse Ox 98.6 F 99 H 18 173/118 96 06/10/20 09:49 06/10/20 09:48 06/10/20 09:48 06/10/20 09:48 06/10/20 09:48 General appearance: Present: mild distress - EENT Eyes: Present: PERRL ENT: hearing intact, clear oral mucosa - Neck Neck: Present: supple, normal ROM - Respiratory Respiratory effort: normal Respiratory: bilateral: CTA - Cardiovascular Heart Sounds: Present: S1 & S2. Absent: rub, click - Extremities Extremities: pulses symmetrical, No edema Peripheral Pulses: within normal limits - Abdominal General gastrointestinal: Present: soft, non-tender, non-distended, normal bowel sounds Female genitourinary: Present: normal - Integumentary Integumentary: Present: clear, warm, dry - Musculoskeletal Musculoskeletal: gait normal, strength equal bilaterally - Psychiatric Psychiatric: appropriate mood/affect, intact judgment & insight - Neurologic Neurologic: CNII-XII intact, moves all extremities Results - Labs CBC & Chem 7: 06/10/20 10:48 06/10/20 Unknown Labs: Abnormal lab results 06/10/20 06/10/20 06/10/20 Range/Units 10:48 10:48 Unknown RBC 3.13 L (3.65-5.03) M/mm3 Hgb 9.5 L (10.1-14.3) gm/dl Hct 29.5 L (30.3-42.9) % RDW 17.8 H (13.2-15.2) % [place] % (Auto) 8.1 H (0.0-7.3) % Potassium 6.2 H* (3.6-5.0) mmol/L Chloride 96.5 L (98-107) mmol/L BUN 65 H (7-17) mg/dL Creatinine 12.8 H (0.6-1.2) mg/dL Glucose 101 H (65-100) mg/dL NT-Pro-B Natriuret Pep 05130 H (0-450) pg/mL Assessment and Plan - Patient Problems (1) ESRD needing dialysis Current Visit: Yes Status: Chronic Plan to address problem: Nephrology consulted in ED for urgent dialysis, avoid nephrotoxic agents. (2) Hyperkalemia Current Visit: Yes Status: Acute Plan to address problem: dialysis as per renal team. (3) Other fluid overload Current Visit: Yes Status: Acute Plan to address problem: Dialysis as per renal team. supportive care. (4) HIV (human immunodeficiency virus infection) Current Visit: Yes Status: Chronic Qualifiers: Plan to address problem: outpatient ID F/U. supportive care. (5) HTN (hypertension) Current Visit: Yes Status: Chronic Qualifiers: Hypertension type: essential hypertension Qualified Code(s): I10 - Essentia l (primary) hypertension Plan to address problem: monitor bp q shift, supportive care. (6) DVT prophylaxis Current Visit: No Status: Acute Plan to address problem: SCD to BLE while in bed,
[2020-06-10] MEDS ORDERED: ACETAMINOPHEN 325 MG TAB PO PRN (13:02)
[2020-06-10] MEDS ORDERED: ONDANSETRON 4 MG/2 ML INJ IV PRN (13:02)
[2020-06-10] MEDS ORDERED: CALCITRIOL 0.5 MCG CAP PO PRN (13:05)
[2020-06-10] MEDS ORDERED: HYDROcodone/ACETAMINOPHEN 10-325MG TAB PO PRN (13:05)
[2020-06-10] MEDS ORDERED: SODIUM CHLORIDE 0.9% 100 ML IV PRN (13:20)
[2020-06-10] MEDS ORDERED: EPOETIN ALFA 10,000 UNIT/1 ML INJ IV PRN (13:20)
[2020-06-10] MEDS ORDERED: LISINOPRIL 40 MG TAB PO SCH (14:05)
[2020-06-10 14:45] LABS: Hepatitis B Surface Antigen Non-Reactive (Negative); Hepatitis C Virus Antibody Non-Reactive (NonReactive)
--- NOTE | 2020-06-10 17:50 | Consultation ---
History of Present Illness - Reason for Consult Consult date: 06/10/20 end stage renal disease Requesting physician: SHELLIE VAZQUEZ - History of Present Illness 39-year-old lady who is known to me with a history of end-stage renal disease on hemodialysis on the Thursday, Thursday and Thursday schedule. She does nocturnal dialysis at [facility] dialysis clinic. Patient says she went to dialysis on Thursday was found to have a temperature of 100 and so was sent to be screened for Covid in the hospital. She went to [facility] on Thursday and spent 24 hrs there and was not seen. She decided to come to [facility] for evaluation. She complains of shortness of breath and chest tightness. No fever or chills. No nausea or vomiting. She admits to cough which is productive of clear sputum. No hemoptysis. Past History Past Medical History: ESRD, HIV/AIDS, hypertension Past Surgical History: Other (Permacath placement, AV graft placement, surgery for ectopic ) Social history: lives with family. denies: smoking, alcohol abuse, prescription drug abuse, IV drug use Family history: diabetes, hypertension, other (Mother has end-stage renal disease and is on Hemodialysis) Medications and Allergies Allergies Allergy/AdvReac Type Severity Reaction Status Date / Time lisinopril Allergy Unknown Verified 06/10/20 17:14 metoprolol Allergy Unknown Verified 06/10/20 17:15 Home Medications Medication Instructions Recorded Confirmed Last Taken Type NIFEdipine [Procardia] 10 mg PO DAILY 05/07/17 05/07/17 05/12/17 22:00 History calcitrioL [Rocaltrol] 0.5 mcg PO PRN PRN 05/07/17 05/13/17 05/06/17 History cloNIDine 0.1 mg PO TID 06/10/20 06/10/20 Unknown History Active Meds: Active Medications Acetaminophen (Acetaminophen 325 Mg Tab) 650 mg PO Q4H PRN PRN Reason: Pain MILD(1-3)/Fever >100.5/JORDAN Hydrocodone Bitart/Acetaminophen (Hydrocodone/Acetaminophen 10-325mg Tab) 1 each PO Q6HR PRN PRN Reason: PAIN Amlodipine Besylate (Amlodipine 5 Mg Tab) 2.5 mg PO QDAY SARAH Calcitriol (Calcitriol 0.5 Mcg Cap) 0.5 mcg PO QDAY PRN PRN Reason: kidney failure Citalopram Hydrobromide (Citalopram 20 Mg Tab) 20 mg PO QDAY SARAH Clonidine HCl (Clonidine 0.1 Mg Tab) 0.1 mg PO Q12HR SARAH Epoetin Lazarus (Epoetin Lazarus 10,000 Unit/1 Ml Inj) 10,000 unit IV BILL PRN PRN Reason: hemodialysis Famotidine (Famotidine 20 Mg Tab) 20 mg PO QDAY SARAH Sodium Chloride (Nacl 0.9%) 100 mls @ 999 mls/hr IV BILL PRN PRN Reason: Hypotension Ondansetron HCl (Ondansetron 4 Mg/2 Ml Inj) 4 mg IV Q8H PRN PRN Reason: Nausea And Vomiting Sodium Chloride (Sodium Chloride 0.9% 10 Ml Flush Syringe) 10 ml IV BID SARAH Sodium Chloride (Sodium Chloride 0.9% 10 Ml Flush Syringe) 10 ml IV PRN PRN PRN Reason: LINE FLUSH Review of Systems All systems: negative (Constitutional: no fever or chills. No anorexia or weight loss. HEENT: No sore throat or sinus drainage no hearing or vision impairment . Cardiovascular: Admits to chest tightness and shortness of breath, no palpitations, lower extremity swelling or dizziness. Respiratory: Admits to cough productiv) Exam - Vital Signs Vital signs: Vital Signs Pulse Resp BP Pulse Ox 99 H 18 173/118 96 06/10/20 09:48 06/10/20 09:48 06/10/20 09:48 06/10/20 09:48 - Physical Exam Narrative exam: Young -Niuean female lying in bed in no acute distress HEENT: NCAT, pink oral mucous membrane Neck: Supple, no venous distention CVS: S1S2 RRR with no murmur, rub or gallop Chest: Clear to auscultation Abdomen: Protuberant, soft, nontender, no organomegaly, bowel sounds are present Extremities: Mild edema Neuro: Awake, alert no focal deficits Results - Lab Results 06/10/20 10:48 06/10/20 Unknown Most recent lab results Calcium 8.7 mg/dL (8.4-10.2) 06/10/20 Unknown Assessment and Plan - Patient Problems (1) Hyperkalemia Current Visit: Yes Status: Acute Plan to address problem: Hyperkalemia due to missed dialysis. Treated medically. We will dialyze urgently. I asked charge nurse to call in the dialysis nurse (2) Other fluid overload Current Visit: Yes Status: Acute Plan to address problem: Hemodialysis for fluid removal today and again tomorrow (3) Accelerated hypertension Current Visit: Yes Status: Acute Plan to address problem: Probably volume related. Also patient is poorly adherent to antihypertensive medications. She only takes the clonidine. Ago and counseled her about importance of adhering to her medications to avoid strokes, heart attacks and other complications of uncontrolled hypertension (4) Missed dialysis Current Visit: Yes Status: Acute Plan to address problem: Counseled about importance of adhering to her dialysis regimen to avoid potentially life-threatening complications like hyperkalemia (5) ESRD needing dialysis Current Visit: Yes Status: Chronic Plan to address problem: We will dialyze today and again tomorrow. (6) HIV (human immunodeficiency virus infection) Current Visit: Yes Status: Chronic Qualifiers: Plan to address problem: Continue antiretrovirals and follow-up with infectious disease specialist
[2020-06-10] MEDS ORDERED: cloNIDine 0.1 MG TAB PO SCH (20:00)
[2020-06-11] MEDS: FAMOTIDINE 20 MG TAB PO SCH ×2 (01:14→09:00)
[2020-06-11] MEDS ORDERED: hydrALAZINE 20 MG/1 ML INJ IV ONE (06:26)
[2020-06-11] MEDS ORDERED: NON-FORMULARY EACH (Clonidine 0.1 MG) PO SCH (08:00)
[2020-06-11] MEDS: cloNIDine 0.1 MG TAB PO SCH ×2 (08:44→14:09)
[2020-06-11] MEDS ORDERED: CITALOPRAM 20 MG TAB PO SCH (10:00)
[2020-06-11] MEDS ORDERED: amLODIPine 5 MG TAB PO SCH (10:00)
--- NOTE | 2020-06-11 10:14 | Progress Note ---
Assessment and Plan - Patient Problems (1) Hyperkalemia Current Visit: Yes Status: Acute Plan to address problem: Hyperkalemia due to missed dialysis. Treated medically. to correct with another HD today using 2k bath (2) Other fluid overload Current Visit: Yes Status: Acute Plan to address problem: Hemodialysis for fluid removal again today (3) ESRD needing dialysis Current Visit: Yes Status: Chronic Plan to address problem: cont HD on MWF schedule (4) Accelerated hypertension Current Visit: Yes Status: Acute Plan to address problem: Probably volume related. Also patient is poorly adherent to antihypertensive medications. She only takes the clonidine. Counseled patient about importance of adhering to her medications to avoid strokes, heart attacks and other complications of uncontrolled hypertension (5) Missed dialysis Current Visit: Yes Status: Acute Plan to address problem: Counseled about importance of adhering to her dialysis regimen to avoid potentially life-threatening complications like hyperkalemia (6) HIV (human immunodeficiency virus infection) Current Visit: Yes Status: Chronic Qualifiers: Plan to address problem: Continue antiretrovirals and follow-up with infectious disease specialist Subjective Date of service: 06/11/20 Principal diagnosis: ESRD Interval history: Pt seen and examined during HD, tolerating treatment well without acute issues Objective - Vital Signs Vital signs: Vital Signs - 12hr 06/10/20 06/10/20 06/10/20 22:15 22:30 22:45 Temperature Pulse Rate 84 82 86 Respiratory Rate Blood Pressure 157/87 150/80 159/94 O2 Sat by Pulse Oximetry O2 Sat by Pulse Oximetry [ Anterior Bilateral Throughout] 06/10/20 06/10/20 06/11/20 23:00 23:30 00:45 Temperature 98.4 F Pulse Rate 84 86 86 Respiratory 18 Rate Blood Pressure 142/92 145/95 O2 Sat by Pulse Oximetry O2 Sat by Pulse 100 Oximetry [ Anterior Bilateral Throughout] 06/11/20 06/11/20 06/11/20 03:46 05:12 08:03 Temperature 98.9 F 98.6 F Pulse Rate 109 H 111 H Respiratory 16 18 20 Rate Blood Pressure 173/110 144/90 O2 Sat by Pulse 95 97 Oximetry O2 Sat by Pulse Oximetry [ Anterior Bilateral Throughout] 06/11/20 06/11/20 06/11/20 08:44 09:00 09:15 Temperature 98.2 F Pulse Rate 111 H 102 H 102 H Respiratory 18 Rate Blood Pressure 144/90 142/92 138/84 O2 Sat by Pulse Oximetry O2 Sat by Pulse Oximetry [ Anterior Bilateral Throughout] 06/11/20 09:30 Temperature Pulse Rate 98 H Respiratory Rate Blood Pressure 159/95 O2 Sat by Pulse Oximetry O2 Sat by Pulse Oximetry [ Anterior Bilateral Throughout] - General Appearance General appearance: well-developed, well-nourished, appears stated age EENT: ATNC, PERRL, mucous membranes moist Neck: no JVD Respiratory: Present: Clear to Ascultation Cardiology: regular, S1S2 Gastrointestinal: normoactive bowel sounds Integumentary: no rash Neurologic: no focal deficit, alert and oriented x3, strength 5/5, CN 3-12 intact Psychiatric: mood/affect appropriate, cooperative - Lab 06/10/20 10:48 06/10/20 Unknown Most recent lab results Calcium 8.7 mg/dL (8.4-10.2) 06/10/20 Unknown Medications & Allergies - Medications Allergies/Adverse Reactions: Allergies lisinopril Allergy (Verified 06/10/20 17:14) Unknown metoprolol Allergy (Verified 06/10/20 17:15) Unknown Home Medications: Home Medications Medication Instructions Recorded Confirmed Last Taken Type NIFEdipine [Procardia] 10 mg PO DAILY 05/07/17 05/07/17 05/12/17 22:00 History calcitrioL [Rocaltrol] 0.5 mcg PO PRN PRN 05/07/17 05/13/17 05/06/17 History cloNIDine 0.1 mg PO TID 06/10/20 06/10/20 Unknown History Active Medications: Generic Name Dose Route Start Last Admin Trade Name Blayneq PRN Reason Stop Dose Admin Acetaminophen 650 mg 06/10/20 13:02 Acetaminophen 325 Mg Tab PO Q4H PRN Pain MILD(1-3)/Fever >100.5/JORDAN Hydrocodone Bitart/Acetaminophen 1 each 06/10/20 13:05 06/11/20 05:12 Hydrocodone/Acetaminophen 10-325mg Tab PO 1 each Q6HR PRN Administration PAIN Amlodipine Besylate 2.5 mg 06/11/20 10:00 06/11/20 09:00 Amlodipine 5 Mg Tab PO 2.5 mg QDAY SARAH Administration Calcitriol 0.5 mcg 06/10/20 13:05 Calcitriol 0.5 Mcg Cap PO QDAY PRN kidney failure Citalopram Hydrobromide 20 mg 06/11/20 10:00 06/11/20 09:00 Citalopram 20 Mg Tab PO 20 mg QDAY SARAH Administration Clonidine HCl 0.1 mg 06/11/20 08:00 06/11/20 08:44 Clonidine 0.1 Mg Tab PO Not Given Q8HR SARAH Epoetin Lazarus 10,000 unit 06/10/20 13:20 06/10/20 23:00 Epoetin Lazarus 10,000 Unit/1 Ml Inj IV 10,000 unit BILL PRN Administration hemodialysis Famotidine 20 mg 06/10/20 15:00 06/11/20 09:00 Famotidine 20 Mg Tab PO 20 mg QDAY SARAH Administration Sodium Chloride 100 mls @ 999 mls/hr 06/10/20 13:20 Nacl 0.9% IV BILL PRN Hypotension Ondansetron HCl 4 mg 06/10/20 13:02 Ondansetron 4 Mg/2 Ml Inj IV Q8H PRN Nausea And Vomiting Sodium Chloride 10 ml 06/10/20 22:00 06/11/20 09:00 Sodium Chloride 0.9% 10 Ml Flush Syringe IV 10 ml BID SARAH Administration Sodium Chloride 10 ml 06/10/20 13:02 Sodium Chloride 0.9% 10 Ml Flush Syringe IV PRN PRN LINE FLUSH
--- NOTE | 2020-06-11 10:37 | Progress Note ---
Assessment and Plan Assessment and plan: Fluid overload -Presented with shortness of breath for 4 days prior to admission -06/11 proBNP 65 581 -Nephrology consulted in the emergency department -Hemodialysis per nephrology ESRD on HD -Outpatient HD schedule MWF -Nephrology consulted, appreciate recommendations -HD per nephrology -Strict intake and output -Daily weights -Avoid nephrotoxic medications -Cardiac renal diet -Epogen per renal team Hyperkalemia -Presented with a potassium of 6.2 -06/11 BMP pending -Electrolyte correction with hemodialysis -Trend BMP -S/p calcium gluconate, D50, 6 units of insulin in the emergency department -Telemetry monitoring Hypertension, chronic -Presents with hypertensive urgency -Blood pressure on admission 173/118 -Patient only takes clonidine at home -Resume and titrate home antihypertensive regimen -Blood pressure monitoring per protocol Osteoarthritis, chronic -Analgesics as needed -Supportive care HIV, chronic -Resume home antiretroviral therapy if listed/known -Follow-up outpatient with ID or HIV clinic Depression -Continue home Celexa -Denies SI or HI at this time -Supportive care Medical noncompliance -Patient has reported noncompliance with antihypertensive regimen and hemodialysis outpatient -Medical compliance strongly encouraged to avoid complications, serious life-threatening injury or DVT prophylaxis -SCDs to bilateral lower extremities while in bed -Heparin subcu History Interval history: 39 YO Female with HTN, OA, HIV, Depression, medical noncompliance, ESRD on HD (M,W,F) who last underwent dialysis 4 days prior to admit presented to ED with shortness of breath over the past 2 days with progressively worsening symptoms over the same time frame. Nephrology consulted in ED for dialysis. This morning the patient is hypertensive and her home blood pressure medications were resumed. She is also hyperkalemic however she is scheduled for hemodialysis today. She does not complain of any shortness of breath, chest pain, nausea/vomiting. Medical compliance strongly encouraged by nephrology and the hospitalist team. Hospitalist Physical - Constitutional Vitals: Temp Pulse Resp BP Pulse Ox 98.2 F 98 H 18 159/95 97 06/11/20 09:00 06/11/20 09:30 06/11/20 09:00 06/11/20 09:30 06/11/20 08:03 General appearance: Present: no acute distress - EENT Eyes: Present: EOM intact ENT: clear oral mucosa, dentition normal - Neck Neck: Present: normal ROM - Respiratory Respiratory effort: normal Respiratory: bilateral: CTA - Cardiovascular Rhythm: regular Heart Sounds: Present: S1 & S2. Absent: systolic murmur, diastolic murmur - Extremities Extremities: no ischemia, pulses intact, pulses symmetrical, No edema, normal temperature, normal color, Full ROM Peripheral Pulses: within normal limits - Abdominal General gastrointestinal: soft, non-tender, non-distended, normal bowel sounds - Integumentary Integumentary: Present: warm, dry - Psychiatric Psychiatric: appropriate mood/affect, cooperative - Neurologic Neurologic: CNII-XII intact, no focal deficits, moves all extremities - Allied Health Allied health notes reviewed: nursing, social work Results - Labs CBC & Chem 7: 06/10/20 10:48 06/10/20 Unknown Labs: Laboratory Last Values WBC 5.4 K/mm3 (4.5-11.0) 06/10/20 10:48 RBC 3.13 M/mm3 (3.65-5.03) L 06/10/20 10:48 Hgb 9.5 gm/dl (10.1-14.3) L 06/10/20 10:48 Hct 29.5 % (30.3-42.9) L 06/10/20 10:48 MCV 94 fl (79-97) 06/10/20 10:48 MCH 30 pg (28-32) 06/10/20 10:48 MCHC 32 % (30-34) 06/10/20 10:48 RDW 17.8 % (13.2-15.2) H 06/10/20 10:48 Plt Count 150 K/mm3 (140-440) 06/10/20 10:48 Lymph % (Auto) 30.7 % (13.4-35.0) 06/10/20 10:48 Cataño % (Auto) 8.1 % (0.0-7.3) H 06/10/20 10:48 Eos % (Auto) 1.4 % (0.0-4.3) 06/10/20 10:48 Baso % (Auto) 1.1 % (0.0-1.8) 06/10/20 10:48 Lymph # (Auto) 1.6 K/mm3 (1.2-5.4) 06/10/20 10:48 Cataño # (Auto) 0.4 K/mm3 (0.0-0.8) 06/10/20 10:48 Eos # (Auto) 0.1 K/mm3 (0.0-0.4) 06/10/20 10:48 Baso # (Auto) 0.1 K/mm3 (0.0-0.1) 06/10/20 10:48 Seg Neutrophils % 58.7 % (40.0-70.0) 06/10/20 10:48 Seg Neutrophils # 3.2 K/mm3 (1.8-7.7) 06/10/20 10:48 Sodium 139 mmol/L (137-145) 06/10/20 Unknown Potassium 6.2 mmol/L (3.6-5.0) H* 06/10/20 Unknown Chloride 96.5 mmol/L (98-107) L 06/10/20 Unknown Carbon Dioxide 25 mmol/L (22-30) 06/10/20 Unknown Anion Gap 24 mmol/L 06/10/20 Unknown BUN 65 mg/dL (7-17) H 06/10/20 Unknown Creatinine 12.8 mg/dL (0.6-1.2) H 06/10/20 Unknown Estimated GFR 4 ml/min 06/10/20 Unknown BUN/Creatinine Ratio 5 % 06/10/20 Unknown Glucose 101 mg/dL (65-100) H 06/10/20 Unknown Calcium 8.7 mg/dL (8.4-10.2) 06/10/20 Unknown NT-Pro-B Natriuret Pep 33252 pg/mL (0-450) H 06/10/20 10:48 HCG, Quant < 2 mIU/mL (0-4) 06/10/20 10:48 Hepatitis A IgM Ab Non-reactive (NonReactive) 06/10/20 Unknown Hep Bs Antigen Non-reactive (Negative) 06/10/20 Unknown Hep B Core IgM Ab Non-reactive (NonReactive) 06/10/20 Unknown Hepatitis C Antibody Non-reactive (NonReactive) 06/10/20 Unknown Duffy/IV: IV Catheter Type [Left Upper INT / Saline Lock arm] Active Medications - Current Medications Current Medications: Generic Name Dose Route Start Last Admin Trade Name Freq PRN Reason Stop Dose Admin Acetaminophen 650 mg 06/10/20 13:02 Acetaminophen 325 Mg Tab PO Q4H PRN Pain MILD(1-3)/Fever >100.5/JORDAN Hydrocodone Bitart/Acetaminophen 1 each 06/10/20 13:05 06/11/20 05:12 Hydrocodone/Acetaminophen 10-325mg Tab PO 1 each Q6HR PRN Administration PAIN Amlodipine Besylate 2.5 mg 06/11/20 10:00 06/11/20 09:00 Amlodipine 5 Mg Tab PO 2.5 mg QDAY SARAH Administration Calcitriol 0.5 mcg 06/10/20 13:05 Calcitriol 0.5 Mcg Cap PO QDAY PRN kidney failure Citalopram Hydrobromide 20 mg 06/11/20 10:00 06/11/20 09:00 Citalopram 20 Mg Tab PO 20 mg QDAY SARAH Administration Clonidine HCl 0.1 mg 06/11/20 08:00 06/11/20 08:44 Clonidine 0.1 Mg Tab PO Not Given Q8HR SARAH Epoetin Lazarus 10,000 unit 06/10/20 13:20 06/10/20 23:00 Epoetin Lazarus 10,000 Unit/1 Ml Inj IV 10,000 unit BILL PRN Administration hemodialysis Famotidine 20 mg 06/10/20 15:00 06/11/20 09:00 Famotidine 20 Mg Tab PO 20 mg QDAY SARAH Administration Sodium Chloride 100 mls @ 999 mls/hr 06/10/20 13:20 Nacl 0.9% IV BILL PRN Hypotension Ondansetron HCl 4 mg 06/10/20 13:02 Ondansetron 4 Mg/2 Ml Inj IV Q8H PRN Nausea And Vomiting Sodium Chloride 10 ml 06/10/20 22:00 06/11/20 09:00 Sodium Chloride 0.9% 10 Ml Flush Syringe IV 10 ml BID SARAH Administration Sodium Chloride 10 ml 06/10/20 13:02 Sodium Chloride 0.9% 10 Ml Flush Syringe IV PRN PRN LINE FLUSH
[2020-06-11 15:33] VITALS: BP 169/109
--- NOTE | 2020-06-12 15:18 | Discharge Summary ---
Providers - Providers Date of Admission: 06/10/20 14:27 Attending physician: KATHI CAMPOS 06/10/20 12:45 Consult to Physician [CONS] Urgent Comment: Consulting Provider: HATTIE FOFANA Physician Instructions: Reason For Exam: esrd, hyperkalemia Primary care physician: [employer] Hospitalization Condition: Stable Hospital course: 39 YO Female with HTN, OA, HIV, Depression, medical noncompliance, ESRD on HD (M,W,F) who last underwent dialysis 4 days prior to admit presented to ED with shortness of breath over the past 2 days with progressively worsening symptoms over the same time frame. Nephrology consulted in ED for dialysis. This morning the patient is hypertensive and her home blood pressure medications were resumed. She is also hyperkalemic however she is scheduled for hemodialysis today. She does not complain of any shortness of breath, chest pain, nausea/vomiting. Medical compliance strongly encouraged by nephrology and the hospitalist team. Patient received HD then proceeded to leave AMA. Problems: Fluid overload -Presented with shortness of breath for 4 days prior to admission -06/11 proBNP 65 581 -Nephrology consulted in the emergency department -Hemodialysis per nephrology ESRD on HD -Outpatient HD schedule MWF -Nephrology consulted, appreciate recommendations -HD per nephrology -Strict intake and output -Daily weights -Avoid nephrotoxic medications -Cardiac renal diet -Epogen per renal team Hyperkalemia -Presented with a potassium of 6.2 -06/11 BMP pending -Electrolyte correction with hemodialysis -Trend BMP -S/p calcium gluconate, D50, 6 units of insulin in the emergency department -Telemetry monitoring Hypertension, chronic -Presents with hypertensive urgency -Blood pressure on admission 173/118 -Patient only takes clonidine at home -Resume and titrate home antihypertensive regimen -Blood pressure monitoring per protocol Osteoarthritis, chronic -Analgesics as needed -Supportive care HIV, chronic -Resume home antiretroviral therapy if listed/known -Follow-up outpatient with ID or HIV clinic -Aymptomatic Depression -Continue home Celexa -Denies SI or HI at this time -Supportive care Medical noncompliance -Patient has reported noncompliance with antihypertensive regimen and hemodialysis outpatient -Medical compliance strongly encouraged to avoid complications, serious life- threatening injury or DVT prophylaxis -SCDs to bilateral lower extremities while in bed -Heparin subcu Disposition: [id number] LEFT AGAINST MED ADVICE Core Measure Documentation - Palliative Care Palliative Care/ Comfort Measures: Not Applicable - Core Measures Any of the following diagnoses?: none Exam - Physical Exam Narrative exam: not done, pt left AMA - Constitutional Vitals: Temp Pulse Resp BP Pulse Ox 100.4 F H 108 H 18 169/109 100 06/11/20 15:31 06/11/20 14:07 06/11/20 15:31 06/11/20 15:31 06/11/20 14:07 Plan Follow up with: PRIMARY CAREMD [Primary Care Provider] - 3-5 Days Forms: AMA Form
== END 2020-06-11 18:00 | disposition left against medical advice (07) | DRG 640 ==
LOC: ED 09:41 → 4A 14:27 → OBSVTOIN 14:27 → 4A 18:38
PROVIDERS: ADMIT Internal Medicine; ATTEND Hospitalist
PROC: 5A1D70Z Performance of Urinary Filtration, Intermittent, Less than 6 Hours Per Day (ICD-10-PCS; principal; 2020-06-10)
PROC: 5A1D70Z Performance of Urinary Filtration, Intermittent, Less than 6 Hours Per Day (ICD-10-PCS; 2020-06-11)
DX: E87.5 Hyperkalemia (principal); N18.6 End stage renal disease; I12.0 Hypertensive chronic kidney disease with stage 5 chronic kidney disease or end stage renal disease; B20 Human immunodeficiency virus [HIV] disease; F32.9 Major depressive disorder, single episode, unspecified; M19.042 Primary osteoarthritis, left hand; M19.041 Primary osteoarthritis, right hand; E87.70 Fluid overload, unspecified; D63.1 Anemia in chronic kidney disease; Z99.2 Dependence on renal dialysis; Z91.14 Patient's other noncompliance with medication regimen; Z88.8 Allergy status to other drugs, medicaments and biological substances
CPT/HCPCS: 36415; 71046; 80048; 80074; 83880; 84702; 85025; 93005; 94644; G0378; J0360; J0610; J0885; J1815